=== PATIENT | male | born 1955 | race African-American/Black ===

== ENCOUNTER 2018-06-08 19:17 | Emergency (ER) | payer MEDICAID ==
[~2018-06-08] VITALS: Ht 190.5 cm; Wt 79.4 kg
[2018-06-08 19:36] VITALS: Ht 190.5 cm; Wt 79.4 kg
[2018-06-08 21:55] VITALS: BP 129/90
== END 2018-06-08 21:55 | disposition home or self-care (01) ==
LOC: ED 19:17
DX: J44.9 Chronic obstructive pulmonary disease, unspecified (principal); M54.9 Dorsalgia, unspecified; Z88.6 Allergy status to analgesic agent; Z98.890 Other specified postprocedural states; Z85.89 Personal history of malignant neoplasm of other organs and systems
CPT/HCPCS: J2270; J7620